=== PATIENT | male | born 1990 | race Caucasian/White ===

== ENCOUNTER 2020-10-15 10:53 | Emergency (ER) | payer OTHER ==
[~2020-10-15] VITALS: Ht 180.3 cm; Wt 120.2 kg
[2020-10-15] MEDS ORDERED: Toprol Xl25 MG PO (11:17)
== END 2020-10-15 11:20 | disposition home or self-care (01) ==
LOC: ER 10:53
DX: Z76.0 Encounter for issue of repeat prescription (principal); I10 Essential (primary) hypertension
CPT/HCPCS: 99281